=== PATIENT | male | born 1965 | race Caucasian/White ===

== ENCOUNTER 2021-02-21 12:42 | Emergency (ER) | payer OTHER ==
--- NOTE | 2021-02-21 13:46 | EDM.PDOC ---
ED HPI GENERAL MEDICAL PROBLEM - General Chief Complaint: Respiratory Problem Stated Complaint: COVID POSITIVE Time Seen by Provider: 02/21/21 13:46 Source of Information: Reports: Patient, RN Notes Reviewed History Limitations: Reports: No Limitations - History of Present Illness INITIAL COMMENTS - FREE TEXT/NARRATIVE: Giuliano presents today for complaints of SOB with activity, cough, body aches, fever, diarrhea and headache (9/10) for the past 3 days. Symptom onset on 03/21/2021. Positive COVID test on 03/23/2021. Use of OTC cold medications without any improvement. He has a history of hypertension and takes lisinopril daily. Patient had COVID vaccination in April 2020. He would like COVID antibody injection/infusion if available. - Related Data Allergies Allergy/AdvReac Type Severity Reaction Status Date / Time No Known Allergies Allergy Verified 02/21/21 13:37 Home Meds: Home Meds lisinopriL [Lisinopril] 10 mg PO DAILY 02/21/21 [History] Past Medical History HEENT History: Reports: Impaired Vision Cardiovascular History: Reports: Hypertension Gastrointestinal History: Reports: None - Infectious Disease History Infectious Disease History: Reports: Chicken Pox, Measles, Mumps, Novel Coronavirus - Past Surgical History Head Surgeries/Procedures: Reports: None HEENT Surgical History: Reports: LASIK Cardiovascular Surgical History: Reports: None GI Surgical History: Reports: Hernia, Inguinal, Hernia Repair/Other Dermatological Surgical History: Reports: None Social & Family History - Tobacco Use Tobacco Use Status *Q: Never Tobacco User Second Hand Smoke Exposure: No - Caffeine Use Caffeine Use: Reports: Coffee - Recreational Drug Use Recreational Drug Use: No ED ROS GENERAL - Review of Systems Review Of Systems: See Below Constitutional: Reports: Fever, Chills, Malaise, Decreased Appetite. Denies: Weakness, Fatigue, Night Sweats, Diaphoresis, Weight Loss HEENT: Reports: Rhinitis (congestion). Denies: Dental Pain, Ear Pain, Eye Pain, Hearing Loss, Sinus Problem, Throat Pain, Throat Swelling, Vertigo Respiratory: Reports: Shortness of Breath (with activity), Wheezing (with ac tivity), Cough. Denies: Pleuritic Chest Pain, Sputum, Hemoptysis Cardiovascular: Reports: Dyspnea on Exertion. Denies: Claudication, Lightheadedness, Orthopnea, Palpitations, PND, Syncope Endocrine: Reports: No Symptoms GI/Abdominal: Reports: Diarrhea. Denies: Abdominal Pain, Anorexia, Black Stool, Bloody Stool, Constipation, Difficulty Swallowing, Distension, Hematemesis, Hematochezia, Nausea, Vomiting : Reports: No Symptoms Musculoskeletal: Reports: Other (Generalized body aches) Skin: Reports: Other (flushed). Denies: Mottled, Pallor, Bruising, Pruritis, Rash, Erythema, Wound Neurological: Reports: No Symptoms Psychiatric: Reports: No Symptoms Hematologic/Lymphatic: Reports: No Symptoms Immunologic: Reports: No Symptoms ED EXAM, GENERAL - Physical Exam Exam: See Below Free Text/Narrative:: Giuliano is an alert and oriented 55 year old male with +COVID test on 02/20/2021, symptom onset 02/18/2021. He received COVID vaccination April,. He was going to receive his COVID booster on 02/20/2021 however he was symptomatic with positive test. Exam Limited By: No Limitations General Appearance: Alert, WD/WN, Mild Distress Eye Exam: Bilateral Eye: Conjunctival Injection (slight), PERRL Ears: Normal External Exam, Normal Canal, Hearing Grossly Normal, Normal TMs Nose: Normal Inspection, Nasal Swelling, Clear Rhinorrhea. No: No Blood, Nasal Tenderness, Nasal Deformity, Nasal Flaring Throat/Mouth: Normal Inspection, Normal Lips, Normal Teeth, Normal Gums, Normal Oropharynx, Normal Voice, No Airway Compromise Head: Atraumatic, Normocephalic Neck: Normal Inspection, Supple, Non-Tender, Full Range of Motion. No: Lymphadenopathy (R), Lymphadenopathy (L) Respiratory/Chest: No Accessory Muscle Use, Chest Non-Tender, Decreased Breath Sounds. No: Crackles, Rales, Rhonchi, Wheezing, Stridor, Pleural Rub, Accessory Muscle Use, Retractions, Splinting Cardiovascular: Normal Peripheral Pulses, Regular Rate, Rhythm, No Edema, No Gallop, No Murmur, No Rub Peripheral Pulses: 4+: Radial (L), Radial (R) GI/Abdominal: Normal Bowel Sounds, Soft, Non-Tender, No Organomegaly, No Distention, No Abnormal Bruit, No Mass. No: Guarding, Rigid, Rebound, Tender (Male) Exam: Deferred Rectal (Males) Exam: Deferred Back Exam: Normal Inspection, Full Range of Motion. No: CVA Tenderness (R), CVA Tenderness (L) Extremities: Normal Inspection, Normal Range of Motion, Non-Tender, No Pedal Edema, Normal Capillary Refill Neurological: Alert, Oriented, CN II-XII Intact, Normal Cognition, Normal Gait, Normal Reflexes, No Motor/Sensory Deficits Psychiatric: Normal Affect, Normal Mood Skin Exam: Warm, Dry, Intact, Normal Color, No Rash Lymphatic: No Adenopathy Course - Vital Signs Last Recorded V/S: Last Vital Signs Temp 36.8 C 02/21/21 13:54 Pulse 68 02/21/21 15:55 Resp 16 02/21/21 13:19 BP 132/84 02/21/21 15:55 Pulse Ox 96 02/21/21 15:55 - Orders/Labs/Meds Orders: Active Orders 24 hr Category Date Time Status Saline Lock Insert [OM.PC] Routine Oth 02/21/21 14:25 Ordered Labs: Laboratory Tests 02/21/21 02/21/21 Range/Units 14:12 14:12 WBC 7.8 (4.5-11.0) K/uL RBC 4.81 (4.30-5.90) M/uL Hgb 15.5 H (12.0-15.0) g/dL Hct 43.9 (40.0-54.0) % MCV 91 (80-98) fL MCH 32 H (27-31) pg MCHC 35 (32-36) % Plt Count 188 (150-400) K/uL Add Manual Diff Yes Neutrophils % (Manual) 82 H (36-66) % Band Neutrophils % 2 L (5-11) % Lymphocytes % (Manual) 10 L (24-44) % Monocytes % (Manual) 6 (2-6) % Sodium 140 (140-148) mmol/L Potassium 4.4 (3.6-5.2) mmol/L Chloride 102 (100-108) mmol/L Carbon Dioxide 28 (21-32) mmol/L Anion Gap 10.2 (5.0-14.0) mmol/L BUN 7 (7-18) mg/dL Creatinine 1.0 (0.8-1.3) mg/dL Est Cr Clr Drug Dosing 97.41 mL/min Estimated GFR (MDRD) > 60 (>60) Glucose 103 (74-106) mg/dL Calcium 8.4 L (8.5-10.1) mg/dL C-Reactive Protein 2.13 H (0.0-0.3) mg/dL No acute findings noted, CRP elevated which would be expected with COVID illness. Meds: Medications Discontinued Medications Generic Name Dose Route Start Last Admin Trade Name Freq PRN Reason Stop Dose Admin Acetaminophen 1,000 mg 02/21/21 14:13 02/21/21 14:43 Acetaminophen 500 Mg Tab PO 02/21/21 14:14 1,000 mg ONETIME ONE Administration Albuterol 0 gm 02/21/21 14:13 02/21/21 14:47 Albuterol 8 Gm Inhaler INH 02/21/21 14:14 8 gm ONETIME ONE Administration Diphenhydramine HCl 50 mg 02/21/21 14:24 Diphenhydramine 50 Mg/Ml Sdv IVPUSH 02/21/21 20:00 ASDIRECTED PRN hypersensitivity reaction Diphenhydramine HCl 50 mg 02/21/21 16:12 02/21/21 16:37 Diphenhydramine 50 Mg/Ml Sdv IVPUSH 02/21/21 16:13 50 mg ONETIME ONE Administration Epinephrine HCl 0.3 mg 02/21/21 14:24 Epinephrine 1 Mg/Ml Sdv IM 02/21/21 20:00 ASDIRECTED PRN hypersensitivity reaction Famotidine 20 mg 02/21/21 14:24 Famotidine 20 Mg/2 Ml Sdv IVPUSH 02/21/21 20:00 ASDIRECTED PRN hypersensitivity reaction Bamlanivimab 700 mg/ 160 mls @ 310 mls/hr 02/21/21 15:00 02/21/21 15:15 Etesevimab 1,400 mg/ Sodium IV 02/21/21 15:30 310 mls/hr Chloride ONETIME ONE Administration Ketorolac Tromethamine 30 mg 02/21/21 14:13 Ketorolac 30 Mg/Ml Sdv IM 02/21/21 14:14 ONETIME ONE Ketorolac Tromethamine 30 mg 02/21/21 14:26 02/21/21 14:44 Ketorolac 30 Mg/Ml Sdv IVPUSH 02/21/21 14:27 30 mg ONETIME ONE Administration Methylprednisolone Sodium Succinate 125 mg 02/21/21 14:24 Methylprednisolone Sodium Succinate 125 Mg/2 Ml Sdv IVPUSH 02/21/21 20:00 ASDIRECTED PRN hypersensitivity reaction Sodium Chloride 30 ml 02/21/21 14:30 Sodium Chloride 0.9% 10 Ml Syringe FLUSH ASDIRECTED CHAYO Sodium Chloride 10 ml 02/21/21 14:25 Sodium Chloride 0.9% 10 Ml Syringe FLUSH ASDIRECTED PRN Keep Vein Open Please see Nurses notes for monoclonal antibody administration record. - Re-Assessments/Exams Free Text/Narrative Re-Assessment/Exam: 02/21/21 14:28 Discussed administration of COVID antibody IV with Melva [employer] mechanic. We are able to administer. Patient notified. He would like to have the IV antibody infusion. Patient provided education on IV infusion of Bamlanivimab 700mg/Etsevimab 1400mg IV x 1 dose. He was notified that this is not a FDA approved medication, it is currently being administered under emergency use authorization for the treatment of mild to moderate COVID-19 in adult patients. He has a risk of progression of worsening illness. All of his questions were answered. Giuliano provided verbal consent for administration. Patient qualifies for administration due to hypertension and BMI>25. Date of onset of symptoms 02/15/2021. Vital signs stable, no need of supplemental oxygen. 02/21/21 15:10 Antibody infusion started per RN. 02/21/21 15:34 Patient tolerating infusion well. 02/21/21 16:21 No untoward effects from antibody infusion. Headache pain is 5/10 at this time. We will administer benadryl 50mg IV (for headache -not antibody reaction) and co ntinue to monitor. Education provided, care of COVID discussed with patient, he verbalized understanding. 02/21/21 17:12 Patient reports he feels much better after benadryl. All his questions were answered, he will be discharged to home Patient discharged, ambulated to ambulance garage with his driving him home. Departure - Departure Time of Disposition: 17:12 Disposition: Home, Self-Care 01 Condition: Good Clinical Impression: COVID-19 - Discharge Information *PRESCRIPTION DRUG MONITORING PROGRAM REVIEWED*: Not Applicable *COPY OF PRESCRIPTION DRUG MONITORING REPORT IN PATIENT JEANNE: Not Applicable Instructions: COVID-19: What to Do If You Are Sick- [facility] (07/09/2020) Referrals: PCP,None [Primary Care Provider] - Forms: ED Department Discharge Additional Instructions: You have been evaluated and treated for your COVID illness. Your lab work did not show acute findings other then viral illness at this time. While in the emergency room you were able to have Bamlanivimab/Etesevimab monoclonal antibody IV therapy. You must complete your 14 day quarantine even if you feel much better in a few days. You cannot have a COVID Booster shot for 90 days since you had antibody infusion today 02/21/2021. Take acetaminophen (tylenol) 1000mg by mouth three times a day. You can take benadryl (diphenhydramine) 50mg by mouth three times a day as needed for congestion, headache. You can take cetirizine (zyrtec) 10mg by mouth once a day as needed for congestion. You can use cough medicine with mucinex as needed. You may continue your cold medication - however make sure that you do not take too much acetaminophen. Check to see if your cold medication has acetaminophen in it. Use albuterol inhaler 2 puffs every 6 hours as needed for SOB. Walk frequently and move to prevent developing a blood clot. Eat plenty of protein to help your body fight illness (eggs, meat, peanut butter). If you develop worsening, issues, difficulty breathing then return to the emergency room. It is appropriate to call 911 if needed as they can help with use of oxygen if n eeded. Sepsis Event Note (ED) - Focused Exam Vital Signs: Vital Signs Temp Pulse Resp BP Pulse Ox 02/21/21 15:55 68 132/84 96 02/21/21 14:06 71 143/90 H 97 02/21/21 13:54 36.8 C 73 155/93 H 95 02/21/21 13:19 36.8 C 73 16 155/93 H 95 - My Orders Last 24 Hours: My Active Orders 02/21/21 14:25 Saline Lock Insert [OM.PC] Routine - Assessment/Plan Last 24 Hours: My Active Orders 02/21/21 14:25 Saline Lock Insert [OM.PC] Routine Assessment:: COVID-19 Plan: Patient evaluated and treated for your COVID illness. Lab work did not show acute findings other then viral illness at this time. While in the emergency room we were able to have Bamlanivimab/Etesevimab monoclonal antibody IV therapy. Patient advised he must complete your 14 day quarantine even if he feels much better in a few days. He cannot have a COVID Booster shot for 90 days since he had antibody infusion today 02/21/2021. Take benadryl (diphenhydramine) 50mg by mouth three times a day as needed for congestion, headache. Take cetirizine (zyrtec) 10mg by mouth once a day as needed for congestion. Use cough medicine with mucinex as needed. May continue cold medication - however make sure that you do not take too much acetaminophen or benadryl. Use albuterol inhaler 2 puffs every 6 hours as needed for SOB. Walk frequently and move to prevent developing a blood clot. Eat plenty of protein to help body fight illness (eggs, meat, peanut butter). If he develop worsening, issues, difficulty breathing then return to the emergency room. It is appropriate to call 911 if needed as they can help with use of oxygen if needed. He can follow up with his primary provider in two weeks and as needed.
[2021-02-21] MEDS ORDERED: Acetaminophen 500 MG Tab PO ONE (14:13)
[2021-02-21] MEDS ORDERED: Albuterol 8 GM Inhaler INH ONE (14:13)
[2021-02-21] MEDS ORDERED: Ketorolac 30 MG/ML SDV IM ONE (14:13)
[2021-02-21] MEDS ORDERED: Famotidine 20 MG/2 ML SDV IVPUSH PRN (14:24)
[2021-02-21] MEDS ORDERED: diphenhydrAMINE 50 MG/ML SDV IVPUSH PRN (14:24)
[2021-02-21] MEDS ORDERED: EPINEPHrine 1 MG/ML SDV IM PRN (14:24)
[2021-02-21] MEDS ORDERED: Bamlanivimab 700 MG, ETESEVIMAB 1,400 MG in Sodium Chloride 0.9% 100 ML IV ONE ×2 (14:24→15:00)
[2021-02-21] MEDS ORDERED: methylPREDNISolone Sodium Succinate 125 MG/2 ML SDV IVPUSH PRN (14:24)
[2021-02-21] MEDS ORDERED: Sodium Chloride 0.9% 10 ML Syringe FLUSH PRN (14:25)
[2021-02-21] MEDS ORDERED: Ketorolac 30 MG/ML SDV IVPUSH ONE (14:26)
[2021-02-21] MEDS ORDERED: Sodium Chloride 0.9% 10 ML Syringe FLUSH SCH (14:30)
[2021-02-21] MEDS ORDERED: diphenhydrAMINE 50 MG/ML SDV IVPUSH ONE (16:12)
== END 2021-02-21 17:14 | disposition home or self-care (01) ==
LOC: JP.ED 12:42
DX: U07.1 COVID-19 (principal); I10 Essential (primary) hypertension; Z79.899 Other long term (current) drug therapy
CPT/HCPCS: 36415; 80048; 85025; 86140; 94640; 96374; 96375; 99283; A9270; J1200; J1885; M0245; Q0245